=== PATIENT | female | born 1990 | race Caucasian/White ===

== ENCOUNTER 2020-08-03 12:27 | Emergency (ER) | payer OTHER, MEDICAID ==
[~2020-08-03] VITALS: Ht 157.5 cm; Wt 53.1 kg
[2020-08-03 12:32] VITALS: BP 113/72; Ht 157.5 cm; Wt 53.1 kg
== END 2020-08-03 13:48 | disposition home or self-care (01) ==
LOC: ED 12:27
DX: S93.402A Sprain of unspecified ligament of left ankle, initial encounter (principal); M25.562 Pain in left knee; Z98.890 Other specified postprocedural states; X58.XXXA Exposure to other specified factors, initial encounter; Y93.89 Activity, other specified; Y92.89 Other specified places as the place of occurrence of the external cause; Y99.8 Other external cause status